=== PATIENT | female | born 1945 | race Caucasian/White ===

== ENCOUNTER → 2018-08-04 | Outpatient (CLI) | payer MEDICARE, BC ==
--- NOTE | 2018-08-04 14:07 | BD ---
EXAMINATION TYPE: Axial Bone Density DATE OF EXAM: 08/04/2018 COMPARISON: NONE CLINICAL HISTORY: Height: 5 FT 2 1/2 IN Weight: 143 FRAX RISK QUESTIONS: Glucocorticoids (More than 3mos): YES (Ex: prednisone, prednisolone, methylprednisolone, dexamethasone, and hydrocortisone). RISK FACTORS HISTORY OF: Active: YES Postmenopausal woman: AGE 52 Lost more than 2 inches in height since high school: YES MEDICATIONS: Additional Medications: VERAPAMIL, SINGULAIR, Additional History: EXAM MEASUREMENTS: Bone mineral densitometry was performed using the [employer] System. Bone mineral density as measured about the Lumbar spine is: ----- L1-L4(G/cm2): 1.013 T Score Values are as follows: ----- L2: -1.8 ----- L3: -1.6 ----- L4: -0.6 ----- L1-L4: -1.4 [facility] Bone mineral density about the R hip (g/cm2): 0.772 Bone mineral density about the L hip (g/cm2): 0.792 T Score values are as follows: -----R Neck: -1.9 -----L Neck: -1.8 -----R Total: -1.8 -----L Total: -1.6 [facility] IMPRESSION: Osteopenia NOTE: T-SCORE=SD OF THE YOUNG ADULT MEAN.
== END | disposition home or self-care (01) ==
LOC: RADBDWWP 12:07
PROVIDERS: ATTEND Internal Medicine
DX: M85.88 Other specified disorders of bone density and structure, other site (principal); Z78.0 Asymptomatic menopausal state
CPT/HCPCS: 77080

== ENCOUNTER 2019-01-14 14:44 | Emergency (ER) | payer MEDICARE, BC ==
[2019-01-14 14:51] VITALS: BP 147/85; PULSE 95; RESP 16; TEMP 98
--- NOTE | 2019-01-14 15:21 | XR ---
EXAMINATION TYPE: XR shoulder complete RT DATE OF EXAM: 01/14/2019 COMPARISON: NONE HISTORY: Shoulder pain TECHNIQUE: 3 views FINDINGS: I see no fracture nor dislocation. Glenohumeral joint is anatomic. There are no pathologic calcifications. IMPRESSION: Negative right shoulder exam.
--- NOTE | 2019-01-14 15:32 | ED ---
Upper Extremity HPI - General Chief Complaint: Extremity Injury, Upper Stated Complaint: Fall-[place]oulder Pain Time Seen by Provider: 01/14/19 14:55 Source: patient, RN notes reviewed Mode of arrival: ambulatory Limitations: no limitations - History of Present Illness Initial Comments: 73-year-old female presents emergency Department with chief complaint of fall, right shoulder pain. Patient states that she had too many glasses of wine last night states that she tripped falling onto her right shoulder she denies any head injury no loss conscious. Patient went to right shoulder pain no neck pain no back pain. Patient is right-hand dominant. She states she has pain with any movement of her right shoulder denies any shortness breath no nausea vomiting. - Related Data Allergies Allergy/AdvReac Type Severity Reaction Status Date / Time No Known Allergies Allergy Verified 01/14/19 14:50 Review of Systems ROS Statement: Those systems with pertinent positive or pertinent negative responses have been documented in the HPI. ROS Other: All systems not noted in ROS Statement are negative. Past Medical History Past Medical History: Hypertension History of Any Multi-Drug Resistant Organisms: None Reported Past Surgical History: No Surgical Hx Reported Past Psychological History: No Psychological Hx Reported Smoking Status: Never smoker Past Alcohol Use History: None Reported, Occasional Past Drug Use History: None Reported General Exam Limitations: no limitations General appearance: alert, in no apparent distress Head exam: Present: atraumatic, normocephalic, normal inspection Neck exam: Present: full ROM. Absent: tenderness Respiratory exam: Present: normal lung sounds bilaterally. Absent: respiratory distress, wheezes, rales, rhonchi, stridor Cardiovascular Exam: Present: regular rate, normal rhythm, normal heart sounds. Absent: systolic murmur, diastolic murmur, rubs, gallop, clicks Extremities exam: Present: other (Right shoulder limited range of motion secondary to pain there is tenderness diffusely, no obvious deformity mild s welling remaining extremity exam is within normal limits.) Back exam: Present: full ROM. Absent: tenderness, paraspinal tenderness, vertebral tenderness Neurological exam: Present: alert, oriented X3, CN II-XII intact Course Vital Signs 01/14/19 14:48 Temperature 98.0 F Pulse Rate 95 Respiratory 16 Rate Blood Pressure 147/85 O2 Sat by Pulse 99 Oximetry Medical Decision Making - Medical Decision Making 73-year-old female presented for right shoulder pain. Patient is right shoulder sprain. Patient we placed a sling. Patient follow-up with orthopedics return parameters were discussed. Disposition Clinical Impression: Fall, Sprain of right shoulder Disposition: HOME SELF-CARE Condition: Stable Instructions (If sedation given, give patient instructions): Shoulder Sprain (ED) Additional Instructions: Please return to the Emergency Department if symptoms worsen or any other concerns. Is patient prescribed a controlled substance at d/c from ED?: No Referrals: Penny Shaffer MD [Primary Care Provider] - 1-2 days Chi Abbasi MD [Medical Doctor] - 1-2 days Time of Disposition: 15:32
== END 2019-01-14 15:44 | disposition home or self-care (01) ==
LOC: EC 14:44
DX: S43.401A Unspecified sprain of right shoulder joint, initial encounter (principal); W01.0XXA Fall on same level from slipping, tripping and stumbling without subsequent striking against object, initial encounter; Y92.009 Unspecified place in unspecified non-institutional (private) residence as the place of occurrence of the external cause
CPT/HCPCS: 99283; 99285

== ENCOUNTER → 2020-07-21 | Outpatient (CLI) | payer MEDICARE, BC ==
--- NOTE | 2020-07-21 17:38 | XR ---
EXAMINATION TYPE: XR chest 2V DATE OF EXAM: 07/21/2020 COMPARISON: NONE HISTORY: Cough TECHNIQUE: 2 views FINDINGS: Heart is normal. There is some mild infiltrate at both lung bases and more on the right gregor e. There is pulmonary hyperinflation and flattening of the diaphragm. There are no hilar masses. Ther e is no heart failure. Thoracic spine is intact. There is no pleural effusion. IMPRESSION: Mild bilateral lower lobe pulmonary infiltrates. There is probably COPD. No heart failure seen.
== END | disposition home or self-care (01) ==
LOC: RADXRMAIN 16:14
PROVIDERS: ATTEND Family Medicine
DX: R91.8 Other nonspecific abnormal finding of lung field (principal)
CPT/HCPCS: 71046

== ENCOUNTER → 2020-07-23 | Outpatient (CLI) | payer MEDICARE, BC | END | disposition home or self-care (01) | LOC: LABWHC1 15:36 | PROVIDERS: ATTEND Family Medicine | DX: U07.1 COVID-19 (principal); R50.9 Fever, unspecified; R05 Cough | CPT/HCPCS: 87502; U0003; C9803; U0005 ==

== ENCOUNTER → 2020-11-05 | Outpatient (CLI) | payer MEDICARE, BC ==
[2020-11-05 10:05] LABS: Appearance,Urine Clear (Clear); Bilirubin,Urine Negative (Negative); Blood,Urine Negative (Negative); Color,Urine Light Yellow; Glucose,Urine (UA) Negative (Negative); Ketones,Urine Negative (Negative); Leukocyte Esterase,Urine Trace (Negative); Nitrite,Urine Negative (Negative); Protein,Urine Negative (Negative); RBC,Urine 1 /hpf (0-5); Specific Gravity,Urine 1.003 (1.001-1.035); Squamous Epithelial Cell,Urine <1 /hpf (0-4); Urobilinogen,Urine <2.0 mg/dL (<2.0); WBC,Urine 1 /hpf (0-5)
[2020-11-05 16:46] LABS: Basophils # (A) 0.06 X 10*3/uL (0.00-0.10); Eosinophils # (A) 0.32 X 10*3/uL (0.04-0.35); Eosinophils % (A) 5.3 %; HCT 40.5 % (37.2-46.3); HGB 13.4 g/dL (12.0-15.0); Lymphocytes # (A) 2.55 X 10*3/uL (0.90-5.00); Lymphocytes % (A) 42.4 %; MCH 32.2 pg (27.0-32.0); MCHC 33.1 g/dL (32.0-37.0); MCV 97.4 fL (80.0-97.0); Mean Platelet Volume 9.4 fL (9.5-12.2); Monocytes # (A) 0.45 X 10*3/uL (0.20-1.00); Monocytes % (A) 7.5 %; Neutrophils # (A) 2.63 X 10*3/uL (1.80-7.70); Neutrophils % (A) 43.6 %; Platelet Count 267 X 10*3/uL (140-440); RBC 4.16 X 10*6/uL (4.10-5.20); RDW 11.9 % (11.5-14.5); WBC 6.02 X 10*3/uL (4.50-10.00)
[2020-11-05 18:48] LABS: Hemoglobin A1C 5.1 % (4.0-6.0)
[2020-11-05 20:25] LABS: Anti-DNA, DS unit <1.0 IU/mL; Anti-Smith Ab Interp NEGATIVE (NEGATIVE); DNA Double-Stranded NEGATIVE (NEGATIVE)
[2020-11-05 23:29] LABS: African American GFR (CKD) 103.3 (60.0-200.0); Albumin 4.2 g/dL (3.80-4.90); Anion Gap 10.5 mmol/L (4.00-12.00); BUN/Creat Ratio 18.33 Ratio (12.00-20.00); Calcium 8.9 mg/dL (8.7-10.3); Carbon Dioxide 26.5 mmol/L (21.6-31.8); Non-African American GFR(CKD) 89.2 (60.0-200.0); Potassium 3.9 mmol/L (3.5-5.5); Total Protein 6.1 g/dL (6.2-8.2)
[2020-11-05 23:30] LABS: Albumin/Globulin Ratio 2.21 (1.60-3.17); Chol/HDL Ratio 2.3; Globulin 1.9 g/dL (1.6-3.3); LDL Cholesterol,Calculated 83.2 mg/dL (0.0-131.0); Total Bilirubin 0.7 mg/dL (0.3-1.2); VLDL Calculation 25.8 mg/dL (5.00-40.00)
== END | disposition home or self-care (01) ==
LOC: LABWHC1 09:14
PROVIDERS: ATTEND Family Medicine
DX: Z00.00 Encounter for general adult medical examination without abnormal findings (principal); I10 Essential (primary) hypertension; M13.0 Polyarthritis, unspecified; M85.80 Other specified disorders of bone density and structure, unspecified site
CPT/HCPCS: 36415; 80053; 80061; 81001; 82306; 83036; 85025; 86038; 86225; 86235; 86431

== ENCOUNTER → 2022-12-17 | Outpatient (CLI) | payer MEDICARE, BC ==
--- NOTE | 2022-12-17 16:33 | US ---
EXAMINATION TYPE: US venous doppler duplex LE DATE OF EXAM: 12/17/2022 4:18 PM COMPARISON: NONE CLINICAL INDICATION: Female, 77 years old with history of R60.0 LOCALIZED EDEMA; bilateral edema and anterior proximal thigh pain. Pt has extensive varicose veins and venous insufficiency. SIDE PERFORMED: Bilateral TECHNIQUE: The lower extremity deep venous system is examined utilizing real time linear array sonog vitaliy with graded compression, doppler sonography and color-flow sonography. VESSELS IMAGED: Common Femoral Vein Deep Femoral Vein Greater Saphenous Vein * Femoral Vein Popliteal Vein Small Saphenous Vein * Proximal Calf Veins (* superficial vessels) Right Leg: Negative for DVT Left Leg: Negative for DVT Right GSV, Right SSV contain mural thrombus, does not extend into the deep system. Exam technically difficult due to extensive varicose veins. IMPRESSION: 1. No evidence for deep vein thrombosis. 2. Superficial thrombophlebitis of the greater saphenous vein and superficial saphenous vein on the right.
== END | disposition home or self-care (01) ==
LOC: RADUSWWP 15:31
PROVIDERS: ATTEND Family Medicine
DX: I87.2 Venous insufficiency (chronic) (peripheral) (principal); I80.01 Phlebitis and thrombophlebitis of superficial vessels of right lower extremity; R60.0 Localized edema
CPT/HCPCS: 93970